=== PATIENT | male | born 1970 | race Caucasian/White ===

== ENCOUNTER → 2018-11-01 08:40 | Outpatient (CLI) | payer OTHER, SELFPAY ==
--- NOTE | 2018-11-01 | DI.MRI.S_ITS ---
PROCEDURE: MR SHOULDER LT W CON INDICATIONS: CYST OF LEFT SHOULDER TECHNIQUE: After the administration of 12 mL of dilute intra-articular Gadolinium contrast, oblique coronal T1 and T2 spin echo with fat saturation, oblique sagittal T1 spin echo with and without fat saturation, oblique sagittal T2 fast spin echo with fat saturation, axial T1 spin echo with fat saturation through the shoulder. COMPARISON: [facility], MR, SHOULDER WITHOUT CONTRAST, 07/17/2017, 14:51. FINDINGS: Image quality: Excellent. Rotator cuff: The supraspinatus, infraspinatus, teres minor and subscapularis tendons appear intact throughout. No rotator cuff muscle atrophy on sagittal images. Bones and bursae: No bone marrow contusions or fractures. Mild glenohumeral and acromioclavicular joint degeneration. The acromion demonstrates conventional anatomy, without an os acromiale. Capsule and soft tissues: Previously described posterior labral tear is again noted. Previous associated para labral cyst is less conspicuous or smaller in size since the prior study possibly present image 10 series 6. There is adjacent degenerative change in the posterior glenoid rim. No definite posterior subluxation of the humeral head relative to the glenoid is visualized. The long head of the biceps tendon demonstrates normal location and morphology. The rotator interval appears normal, without fibrosis. The coracohumeral ligament is of normal thickness. No intra-articular bodies. IMPRESSION: Posterior labral tear as before. The previously described associated paralabral cyst is less conspicuous. Adjacent degenerative sclerosis and spurring in the posterior glenoid rim. No definite posterior subluxation of the humeral head relative to glenoid to suggest microinstability is identified. No rotator cuff tear. Mild glenohumeral and acromioclavicular joint degeneration. Dictated by: Simone Hernandez M.D. on 11/01/2018 at 11:10 Approved by: Simone Hernandez M.D. on 11/01/2018 at 11:17
--- NOTE | 2018-11-01 | DI.RAD.S_ITS ---
PROCEDURE: FL SHOULDER INJECTION MR/CT LT INDICATIONS: CYST OF LEFT SHOULDER TECHNIQUE: The indications, alternatives, benefits, risks, and complications of the procedure were explained to the patient. Written informed consent was obtained and placed in the chart. The shoulder was examined fluoroscopically and a site for needle placement chosen for entry into the glenohumeral joint from an anterior approach. The skin was prepped and draped in a sterile fashion, and 1% lidocaine infiltrated from skin down to joint capsule. A spinal needle was inserted into the glenohumeral joint, and a small amount of iodinated contrast media injected to confirm intra-articular placement of the needle tip. This was followed by approximately 12 mL dilute solution of a gadolinium containing MR contrast agent. The needle was removed and a dressing was applied. The patient was given postprocedural instructions and sent to the MR suite for MR imaging. FINDINGS: A single fluoroscopic spot image demonstrates intra-articular location of injected iodinated contrast. IMPRESSION: Successful fluoroscopically guided administration of dilute Gadolinium solution into the shoulder joint for MR arthrogram. Dictated by: Simone Hernandez M.D. on 11/01/2018 at 11:06 Approved by: Simone Hernandez M.D. on 11/01/2018 at 11:07
== END ==
PROVIDERS: PCP Family Medicine; Visit Provider Preventive Medicine Occupational Medicine
DX: S43.432A Superior glenoid labrum lesion of left shoulder, initial encounter (principal); S43.492A Other sprain of left shoulder joint, initial encounter; M19.012 Primary osteoarthritis, left shoulder
CPT/HCPCS: 23350; 73222; 77002

== ENCOUNTER → 2019-01-24 12:33 | Outpatient (CLI) | payer OTHER, SELFPAY ==
--- NOTE | 2019-01-24 12:40 | DI.CT.S_ITS ---
PROCEDURE: CT UE LT WO CON INDICATIONS: LEFT SHOULDER PAIN TECHNIQUE: Noncontrast 1-1.5 mm thick sections acquired from the acromioclavicular joint to the inferior scapula, with coronal and sagittal reformatting. COMPARISON: [facility], CR, XR ACROMIOCLAVICULAR JOINTS, 01/12/2019, 10:32. [facility], MR, MR SHOULDER LT W CON, 11/01/2018, 9:19. FINDINGS: Image quality: Excellent. Bones: Osteoarthritic changes are noted involving left acromioclavicular joint with joint space narrowing, subchondral sclerosis and cyst formation as well as small marginal osteophyte formation. No fracture or dislocation. No evidence of a.c. separation. Mild glenohumeral joint osteoarthritic changes are seen. No suspicious intraosseous lesion. The visualized left-sided upper ribs are intact. Soft tissues: No full-thickness rotator cuff tendon rupture. No significant joint effusion or intra-articular loose body. IMPRESSION: 1. 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 No fracture or dislocation. No CT evidence of acromioclavicular separation. 2. No full-thickness rotator cuff tendon rupture. No significant joint effusion or intra-articular loose body. Dictated by: Peter Spangler M.D. on 01/24/2019 at 15:07 Approved by: Peter Spangler M.D. on 01/24/2019 at 15:15
== END ==
PROVIDERS: PCP Family Medicine; Visit Provider Preventive Medicine Occupational Medicine
DX: M25.512 Pain in left shoulder (principal); M19.012 Primary osteoarthritis, left shoulder
CPT/HCPCS: 73200